=== PATIENT | male | born 1960 | race Caucasian/White ===

== ENCOUNTER → 2023-07-28 07:50 | Outpatient (REF) | payer OTHER, SELFPAY ==
--- NOTE | 2023-07-28 07:53 | CA_ITS ---
Transthoracic Echocardiogram Patient (Last, First, Middle): Daniel Red P Gender: Male Date of : 1960 Age: 62 Procedure Date: 07/28/2023 Procedure Type: Transthoracic Echocardiogram Location: [facility] Height: 172.72 cm Weight: 70.31 kg BSA: 1.83 m2 Heart Rate: 51 bpm BP: 130 / 78 mmHg Admissions Consultant: SB Referring MD: Timi Cedeno MD [employer] Operations Manager: Trever Scherer MD Symptoms: AORTIC STENOSIS Study Quality: Adequate ECG Rhythm: Bradycardia Conclusions: - 1. Normal LV systolic function with LVEF of 60-65% with normal filling pattern next 2. No evidence of valvular aortic stenosis but subvalvular stenosis with subaortic membrane cannot be entirely ruled out with mild aortic regurgitation 3. Normal RV systolic pressure 4. Mildly dilated ascending aorta 3.8 cm 5. No pericardial effusion Findings Left Ventricle Normal left ventricular size, thickness, and systolic function. The visually estimated ejection fraction is between 60-65%. There is no systolic anterior motion of the mitral valve. Spectral Doppler is indicative of a normal filling pattern. There is mild septal asymmetric hypertrophy. Right Ventricle Normal right ventricular cavity size and systolic function. Atria The left atrium is normal in size. There is no evidence of interatrial shunt. The right atrium is normal in size. There is a prominent Chiari network. Aortic Valve Normal aortic valve structure and function. There is no aortic valve stenosis. There is mild aortic valve regurgitation. However there is mildly accelearted flow and gradient across the aortic valve without evidence of obstructive physiology related to hypertrophic cardiomyopathy. A subaortic membrane cannot be entirely ruled out. Consider a subaortic membrane Mitral Valve Normal mitral valve structure and function. There is trace mitral valve regurgitation. There is no mitral valve stenosis. Pulmonic Valve The pulmonic valve is likely normal. There is trace pulmonic valve regurgitation. Tricuspid Valve Normal tricuspid valve structure. There is trace tricuspid valve regurgitation. The right ventricular systolic pressure is normal. The right ventricular systolic pressure is 25 mmHg. Normal right atrial pressure. There is no evidence of pulmonary hypertension. Great Vessels The pulmonary artery was not well visualized. There is mild dilatation of the ascending aorta. Venous The inferior vena cava is normal in size and collapses greater than 50% with inspiration. Pericardium/Pleural There is no evidence of pericardial effusion. Recommendations, Care & Conclusions Consider a ADDI if clinically appropriate. Measurements 2D Linear Measurements IVSd: 1.30 0.6-0.9/0.6-1.0 cm LVIDd: 4.24 3.9-5.3/4.2-5.9 cm LVIDd Index: 2.32 2.4-3.2/2.2-3.1 cm/m2 LVIDs: 3.02 2.0-3.6 cm LVPWd: 1.06 0.7-1.1 cm LA Diam: 3.50 2.7-3.8/3.0-4.0 cm LAIDs Index: 1.91 1.5-2.3 cm/m2 LV Mass: 219.72 67-162/88-224 g LV Mass Index: 120.07 43-95/49-115 g/m2 LVOT Diam: 2.20 3.0+(-)1.3 cm 2D Systolic Function EF 4C: 63.60 >55% EF 2C: 66.80 >55% EF BiP: 64.70 >55% Mitral Valve MV Pk E: 0.73 MV PK A: 0.63 MV Decel Time: 243.00 E/A: 1.20 E'Lateral: 8.27 E'Medial: 6.20 E/E' Med: 11.70 E/E' Lat: 8.80 PHT: 71.00 MVA PHT: 3.10 Decel Gentry: 3.00 Aortic Valve AoV Pk Jeff: 2.06 AoV Mn Jeff: 1.33 AoV VTI: 0.42 AoV Pk Grad: 17.00 Aov Mn Grad: 9.00 WANG Cont.VTI: 3.30 LVOT LVOT Pk Jeff: 1.79 LVOT Mn Jeff: 1.14 LVOT VTI: 0.37 LVOT Pk Grad: 13.00 LVOT Mn Grad: 7.00 LVOT Diam: 2.20 LVOT Area: 3.80 Diastolic Function MV Pk E: 0.73 MV Pk A: 0.63 E/A: 1.20 E'Medial: 6.20 E/E' Med: 11.70 E' Laterial: 8.27 E/E' Lat: 8.80 Right Ventricle TAPSE (mm): 19.10 TVS' Jeff: 10.40 Tricuspid Valve TR Pk Jeff: 2.36 TR Pk Grad: 22.00 RA Press: 3.00 RVSP: 25.00 Great Vessels Aorta Sinus of Valsalva: 3.60 2.0-3.5 cm Ao Asc: 3.80 2.1-3.4 cm Pulmonary Veins Pulm Vein S/D 1.10 Pulmonary Valve PV Pk Jeff: 1.04 Peak PV Grad: 4.00 Updated in Other Vendor System with Status of Final Trever Scherer MD electronically signed on 07/28/2023 3:43:09 PM with status of Final
== END ==
LOC: HO.CARD 07:50
PROVIDERS: Visit Provider Internal Medicine
DX: I35.2 Nonrheumatic aortic (valve) stenosis with insufficiency (principal)
CPT/HCPCS: 93306

== ENCOUNTER → 2023-07-28 07:53 | Outpatient (BNV) | payer OTHER, SELFPAY | PROVIDERS: Visit Provider Internal Medicine Cardiovascular Disease | DX: I35.1 Nonrheumatic aortic (valve) insufficiency (principal) | CPT/HCPCS: 93306 ==